=== PATIENT | female | born 1945 | race Caucasian/White ===

== ENCOUNTER → 2021-05-05 | Outpatient (CLI) | payer OTHER ==
[~2021-05-05] VITALS: Ht 160 cm; Wt 93.0 kg
[~2021-05-05] MED LIST: ADULT ASPIRIN R81 MG PO; BIOTIN2500 MCG PO; CALCIUM-MAG-ZI1 EACH PO; COMPOUNDED HORMONE; DICLOFENAC SODI75 MG PO; DULOXETINE HCL60 MG PO; FISH OIL 500 M1 EAC3 PO; LISINOPRIL10 MG PO; LYRICA100 MG PO; MECLIZINE HCL25 M1 PO; NORVASC 2.5 MG2.5 M1 PO; PROTONIX40 M2 PO; SIMVASTATIN20 MG PO; SYNTHROID112 MCG PO; VALIUM5 MG PO
[2021-05-05 13:43] VITALS: BP 170/76
[2021-05-05 13:53] LABS: HEMATOCRIT 33.5 % (37.0-47.0); MCH 29.6 pg (26.0-34.0); MCHC 32.8 g/dL (28.0-37.0); MCV 90.2 fL (80.0-100.0); RBC 3.71 mil/uL (4.20-5.00); RDW 16.1 % (10.5-14.5); WBC 4.5 thou/uL (4.0-11.0)
== END | disposition home or self-care (01) ==
LOC: CATH 11:31
PROVIDERS: ATTEND Nuclear Medicine Nuclear Cardiology
DX: M80.08XA Age-related osteoporosis with current pathological fracture, vertebra(e), initial encounter for fracture (principal); M54.9 Dorsalgia, unspecified; I10 Essential (primary) hypertension; E11.9 Type 2 diabetes mellitus without complications; E78.5 Hyperlipidemia, unspecified; D64.9 Anemia, unspecified; M79.7 Fibromyalgia; Z98.890 Other specified postprocedural states; Z79.899 Other long term (current) drug therapy; Z87.891 Personal history of nicotine dependence; Z88.2 Allergy status to sulfonamides; Z88.8 Allergy status to other drugs, medicaments and biological substances; Z90.49 Acquired absence of other specified parts of digestive tract